=== PATIENT | male | born 1970 | race Hispanic/Latino ===

== ENCOUNTER 2021-09-26 21:23 | Emergency (ER) | payer OTHER, SELFPAY ==
[2021-09-26 21:33] VITALS: BP 117/96; PULSE 20; RESP 62; TEMP 36.4; O2SAT 95; BMI 33.6
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
[2021-09-26 22:33] VITALS: PULSE 70; O2SAT 99
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
--- NOTE | 2021-09-26 22:33 | PC.NURSE ---
Pt declined phone staff interpreter. Wants to use for Tristanian interpretation.
[2021-09-26 22:34] VITALS: BP 122/78; PULSE 70; O2SAT 99
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
--- NOTE | 2021-09-26 22:39 | DI.CT.S_ITS ---
PROCEDURE: CT CERVICAL SPINE WO CON INDICATIONS: trauma TECHNIQUE: Noncontrast 3 mm thick sections acquired from the skull base to the T4 level. Sagittal and coronal reformats were then constructed. For radiation dose reduction, the following was used: automated exposure control, adjustment of mA and/or kV according to patient size. COMPARISON: None. FINDINGS: Image quality: Excellent. Bones: No fractures or dislocations. Visualized superior ribs are intact. Soft tissues: Partially visualized nondisplaced fracture of the right 3rd rib. IMPRESSION: No CT evidence of acute traumatic cervical spine injury. Nondisplaced right 3rd rib fracture partially visualized. Please see CT chest/abdomen/pelvis report for further details. Dictated by: Javid Hui M.D. on 09/26/2021 at 23:20 Approved by: Javid Hui M.D. on 09/26/2021 at 23:21
[2021-09-26 23:06] LABS: Add Manual Diff / Slide Review NO; Basophils Absolute Auto 100 /uL (0-100); Basophils Percent Auto 0.3 % (0-2); Eosinophils Absolute Auto 100 /uL (0-450); Eosinophils Percent Auto 0.9 % (2-4); Hematocrit 40.9 % (41-53); Hemoglobin 13.6 g/dL (13.5-17.5); Lymphocytes Absolute Auto 1700 /uL (1100-4500); Lymphocytes Percent Auto 11.3 % (25-40); Mean Corpuscular HGB Conc 33.3 % (30-36); Mean Corpuscular Hemoglobin 27.8 PG (26-34); Mean Corpuscular Volume 83.7 fL (80-100); Monocytes Absolute Auto 700 /uL (0-900); Monocytes Percent Auto 4.7 % (3-14); Neutrophils Absolute Auto 12700 /uL (1500-7000); Neutrophils Percent Auto 82.8 % (50-75); Platelet Count 223 X10^3/uL (150-400); Red Blood Cell Count 4.88 X10^6/uL (4.5-5.9); Red Cell Distribution Width 13.3 % (11.6-14.8); White Blood Cell Count 15.4 X10^3/uL (4.5-11.0)
[2021-09-26 23:12] VITALS: PULSE 93; O2SAT 99
[2021-09-26 23:14] LABS: Lipase 82 U/L (23-300)
[2021-09-26 23:15] LABS: Lactate (Lactic Acid) 2.8 mmol/L (0.7-2.1)
[2021-09-26 23:16] LABS: Alanine Aminotransferase 36 IU/L (<50); Albumin 4.6 g/dL (3.5-5.0); Albumin Globulin Ratio 1.4 (1.0-2.8); Alkaline Phosphatase 94 U/L (38-126); Aspartate Aminotransferase 54 IU/L (17-59); BUN Creatinine Ratio 20.3 (6-22); Bilirubin Total 0.4 mg/dL (0.2-1.3); Blood Urea Nitrogen 14 mg/dL (9-20); Calcium 9.3 mg/dL (8.4-10.2); Carbon Dioxide 26 mmol/L (22-32); Chloride 103 mmol/L (98-107); Estimated Glomerular Filt Rate > 60 mL/min (>60); Globulin 3.3 g/dL (1.7-4.1); Glucose 127 mg/dL (70-100); HEMOLYSIS < 15 (0-50); Potassium 3.4 mmol/L (3.4-5.1); Sodium 141 mmol/L (137-145); Total Protein 7.9 g/dL (6.3-8.2)
[2021-09-26] MEDS: ONDANSETRON 4 MG/2 ML INJ IV (23:16)
[2021-09-26] MEDS: HYDROMORPHONE 0.5 MG INJ IV (23:16)
[2021-09-26 23:28] VITALS: BP 132/74; PULSE 93; O2SAT 99
[2021-09-26 23:30] VITALS: BP 124/63; PULSE 95; RESP 12; O2SAT 99
[2021-09-26 23:52] LABS: COVID19 -Nasal RAPID Negative (Negative)
[2021-09-27] VITALS: BP 113/69; PULSE 97; RESP 13; O2SAT 95
[2021-09-27 00:30] VITALS: BP 117/64; PULSE 103; RESP 13; O2SAT 96
[2021-09-27 01:00] VITALS: BP 112/63; PULSE 99; RESP 10; O2SAT 97
[2021-09-27 01:00] LABS: Reflexed Lactate in 2 Hours Y
[2021-09-27] MEDS: KETOROLAC 30 MG/ML VIAL 15 MG IV (01:16)
[2021-09-27] MEDS: OXYCODONE/ACETAMINOPHEN 5/325 TABLET 1 TAB PO (01:16)
[2021-09-27] MEDS: OXYCODONE/APAP 5/325 PREPACK 1 BOTTLE MISC (01:28)
[2021-09-27 01:30] VITALS: PULSE 100; O2SAT 96
== END 2021-09-27 01:51 | disposition home or self-care (01) ==
PROVIDERS: Emergency Provider Emergency Medicine
DX: S22.41XA Multiple fractures of ribs, right side, initial encounter for closed fracture (principal); V19.9XXA Pedal cyclist (driver) (passenger) injured in unspecified traffic accident, initial encounter; Z20.822 Contact with and (suspected) exposure to COVID-19
CPT/HCPCS: 36415; 70450; 71046; 71260; 72125; 74177; 80053; 83605; 83690; 85025; 86850; 86900; 86901; 87635; 93005; 93010; 96374; 96375; 99284; 99285; C9803; J1170; J1885; J2405; Q9967